=== PATIENT | female | born 1975 | race Caucasian/White ===

== ENCOUNTER 2019-02-26 18:59 | Emergency (ER) | payer BC ==
[2019-02-26 19:31] VITALS: BP 153/95; PULSE 100
--- NOTE | 2019-02-26 19:48 | EDM.PDOC ---
ED HPI GENERAL MEDICAL PROBLEM - General Chief Complaint: Laceration Stated Complaint: RIGHT PINKY CUT Time Seen by Provider: 02/26/19 19:43 Source of Information: Reports: Patient History Limitations: Reports: No Limitations - History of Present Illness INITIAL COMMENTS - FREE TEXT/NARRATIVE: cut right 5th last night. had to work today so unable to come till now because it won't stop bleeding. 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: Reports: Psychiatric History: Reports: Anxiety, Panic Attack - Past Surgical History GI Surgical History: Reports: Cholecystectomy Female Surgical History: Reports: Tubal Ligation Social & Family History - Family History Family Medical History: Noncontributory - Tobacco Use Smoking Status *Q: Current Every Day Smoker Years of Tobacco use: 25 Packs/Tins Daily: 1 Used Tobacco, but Quit: No Second Hand Smoke Exposure: Yes - Caffeine Use Caffeine Use: Reports: Coffee - Alcohol Use Days Per Week of Alcohol Use: 2 Number of Drinks Per Day: 5 Total Drinks Per Week: 10 Date of Last Drink: 02/25/19 - Recreational Drug Use Recreational Drug Use: No - Living Situation & Occupation Living situation: Reports: , with Family Occupation: Employed ED ROS GENERAL - Review of Systems Review Of Systems: Comprehensive ROS is negative, except as noted in HPI. ED EXAM, SKIN/RASH Exam: See Below Exam Limited By: No Limitations General Appearance: Alert, WD/WN, Mild Distress, Other (pain) Ears: Hearing Grossly Normal Throat/Mouth: Normal Voice, No Airway Compromise Head: Atraumatic Neck: Non-Tender, Full Range of Motion Respiratory/Chest: No Respiratory Distress Cardiovascular: Regular Rate, Rhythm GI/Abdominal: Soft, Non-Tender Extremities: Other (right 5th distal 3/4". NV wnl) Neurological: Alert, Oriented, Normal Cognition, Normal Gait, No Motor/Sensory Deficits Psychiatric: Flat Affect Skin: Warm, Dry, Normal Color Location, Skin: Upper Extremity, Right Lymphatic: No Adenopathy ED SKIN PROCEDURES - Laceration/Wound Repair Right Digit - 5th (Baby) Appearance: Subcutaneous, Linear, Clean Distal NVT: Neuro & Vascular Intact, No Tendon Injury Anesthetic Type: Local Local Anesthesia - Lidocaine (Xylocaine): 1% Plain Local Anesthetic Volume: 5cc Skin Prep: Chlorhexidine (Hibiciens) Saline Irrigation (cc's): 20 Exploration/Debridement/Repair: Wound Explored, In a Bloodless Field, No Foreign Material Found Closed with: Sutures Lac/Wound length In cm: 2 (right 5th distal) Suture Size: 4-0 Suture Type: Nylon, Interrupted Sterile Dressing Applied: Provider Tetanus Status Addressed: Yes Complications: No Course - Vital Signs Last Recorded V/S: Last Vital Signs Temp 36.4 C 02/26/19 19:25 Pulse 100 02/26/19 19:25 Resp 18 02/26/19 19:25 BP 153/95 H 02/26/19 19:25 Pulse Ox 97 02/26/19 19:25 - Orders/Labs/Meds Meds: Medications Discontinued Medications Generic Name Dose Route Start Last Admin Trade Name [place] PRN Reason Stop Dose Admin Clindamycin HCl 150 mg 02/26/19 19:44 02/26/19 19:50 Cleocin PO 02/26/19 19:45 150 mg ONETIME ONE Administration Lidocaine HCl 30 ml 02/26/19 19:43 02/26/19 19:50 Xylocaine-Mpf 1% INJECT 02/26/19 19:44 30 ml ONETIME ONE Administration Departure - Departure Time of Disposition: 20:48 Disposition: Home, Self-Care 01 Condition: Good Clinical Impression: Finger laceration Qualifiers: Encounter type: initial encounter Finger: little finger Damage to nail status: without damage Foreign body presence: without foreign body Laterality: right Qualified Code(s): S61.216A - Laceration without foreign body of right little finger without damage to nail, initial encounter - Discharge Information Instructions: Sutured Wound Care, [id number] Forms: ED Department Discharge Additional Instructions: 1) wound check if looks infected 2) suture removal 10 days 3) keep wound clean dry covered rx given; clindamycin 150mg qid x 40
[2019-02-26] MEDS: Lidocaine 1% 30 ML SDV INJECT ONE (19:50)
[2019-02-26] MEDS: Clindamycin HCl 150 MG Cap PO ONE (19:50)
== END 2019-02-26 20:57 | disposition home or self-care (01) ==
LOC: DL.ED 18:59
DX: S61.216A Laceration without foreign body of right little finger without damage to nail, initial encounter (principal); F17.210 Nicotine dependence, cigarettes, uncomplicated; I10 Essential (primary) hypertension; Z79.899 Other long term (current) drug therapy; W26.9XXA Contact with unspecified sharp object(s), initial encounter
CPT/HCPCS: 12001; 99282; A9270; J2001

== ENCOUNTER 2020-06-15 13:22 | Emergency (ER) | payer BC ==
--- NOTE | 2020-06-15 13:40 | EDM.PDOC ---
ED HPI GENERAL MEDICAL PROBLEM - General Chief Complaint: Cardiovascular Problem Stated Complaint: CHEST PAIN, HEAVY ARMS, PAIN IN JAW Time Seen by Provider: 06/15/20 13:28 Source of Information: Reports: Patient, Old Records, RN, RN Notes Reviewed History Limitations: Reports: No Limitations - History of Present Illness INITIAL COMMENTS - FREE TEXT/NARRATIVE: Patient presents to the ED via personal vehicle with complaints of chest pain. The patient reports this pain began two days ago and has progressively worsened in this time. She characterizes the pain as a "pressure" and states it radiates through her chest into her back. She states this pressure causes her to feel short of breath at times. Additionally, she attest to fatigue, headache, bilateral upper extremity weakness and abdominal discomfort. She denies fever, shaking chills, palpitations, nausea, vomiting, constipation, melena, or hematochezia. She denies a history of cardiac events but does note a history of HTN for which she takes Lisinopril 20mg daily. She attest to a one pack a day smoking history. She denies recreational drug use or habitual alcohol consumption. The patient states she has not had an active COVID infection and has not received the vaccination. 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 ED EXAM, GENERAL - Physical Exam Exam: See Below Exam Limited By: No Limitations General Appearance: Alert, No Apparent Distress Eye Exam: Bilateral Eye: EOMI, Normal Inspection, PERRL (3mm) Nose: Normal Inspection, Normal Mucosa, No Blood Throat/Mouth: Normal Inspection, Normal Lips, Normal Teeth, Normal Gums, Normal Oropharynx, Normal Voice, No Airway Compromise Head: Atraumatic, Normocephalic Neck: Normal Inspection, Supple, Non-Tender, Full Range of Motion Respiratory/Chest: No Respiratory Distress, No Accessory Muscle Use, Rales (To right lower lobr), Wheezing (Inspiratory and expiratory on the right upper and lower lobe). No: Crackles, Rhonchi Cardiovascular: Regular Rate, Rhythm, No Edema, No Gallop, No JVD, No Rub, Systolic Murmur (3/6, loudest over the pulmonic area; No radiation into the carotids) Peripheral Pulses: 2+: Radial (L), Radial (R) GI/Abdominal: Normal Bowel Sounds, Soft, Non-Tender, No Organomegaly, No Distention, No Abnormal Bruit, No Mass (Female) Exam: Deferred Rectal (Female) Exam: Deferred Back Exam: Normal Inspection, Full Range of Motion. No: CVA Tenderness (L), CVA Tenderness (R) Extremities: Normal Inspection, Normal Range of Motion, Non-Tender, Normal Capillary Refill, No Pedal Edema Neurological: Alert, Oriented, CN II-XII Intact, Normal Cognition, Normal Gait, No Motor/Sensory Deficits Psychiatric: Normal Affect, Normal Mood Skin Exam: Warm, Dry, Intact, Normal Color, No Rash. No: Ecchymosis, Erythema, Jaundice, Mottled, Pallor, Petechiae #1 Interpretation EKG Date: 06/15/20 Time: 13:37 Rhythm: NSR Rate (Beats/Min): 81 [place]: LAD-Left [place] Deviation P-Wave: Present QRS: Normal ST-T: Normal QT: Normal GA/PQ Interval: 0.172 Comparison: NA - No Prior EKG EKG Interpretation Comments: NSR; No evidence of acute myocardial ischemia Course - Vital Signs Last Recorded V/S: Last Vital Signs Temp 97.7 F 06/15/20 13:23 Pulse 88 06/15/20 13:23 Resp 16 06/15/20 13:23 BP 156/84 H 06/15/20 13:23 Pulse Ox 100 06/15/20 13:23 - Orders/Labs/Meds Orders: Active Orders 24 hr Category Date Time Status CULTURE URINE [RM] Stat Lab 06/15/20 14:02 Received Labs: Laboratory Tests 03/18/21 03/18/21 03/18/21 Range/Units 13:29 13:29 13:29 WBC 6.4 (5.0-10.0) 10^3/uL RBC 4.65 (4.2-5.4) 10^6/uL Hgb 12.2 (12.0-16.0) g/dL Hct 38.4 (37.0-47.0) % MCV 82.6 D (80-100) fL MCH 26.2 L (27.0-34.0) pg MCHC 31.8 L (33.0-35.0) g/dL Plt Count 215 (150-450) 10^3/uL Neut % (Auto) 62.6 (42.2-75.2) % Lymph % (Auto) 23.0 (20.5-50.1) % [place] % (Auto) 11.0 H (2-8) % Eos % (Auto) 2.8 (1.0-3.0) % Baso % (Auto) 0.6 (0.0-1.0) % Sodium 140 (136-145) mmol/L Potassium 4.4 (3.5-5.1) mmol/L Chloride 103 (98-107) mmol/L Carbon Dioxide 25 (21-32) mmol/L Anion Gap 16.4 H (7-13) mEq/L BUN 11 (7-18) mg/dL Creatinine 0.95 (0.55-1.02) mg/dL Est Cr Clr Drug Dosing 71.48 mL/min Estimated GFR (MDRD) > 60 BUN/Creatinine Ratio 11.6 (No establ ref range) Glucose 101 H (74-99) mg/dL Lactic Acid 1.2 (0.4-2.0) mmol/L Calcium 8.7 (8.5-10.1) mg/dL Total Bilirubin 0.3 (0.2-1.0) mg/dL AST 27 (15-37) U/L ALT 49 (14-59) U/L Alkaline Phosphatase 83 (46-116) U/L Troponin I 0.174 H* (0.000-0.056) ng/mL C-Reactive Protein < 0.2 (0.0-0.9) mg/dL B-Natriuretic Peptide 23 (0-100) pg/ml Total Protein 7.8 (6.4-8.2) g/dL Albumin 3.7 (3.4-5.0) g/dL Globulin 4.1 Albumin/Globulin Ratio 0.9 Amylase 43 (25-115) U/L Lipase 121 (73-393) U/L HCG, Qual Negative Urine Color (YELLOW) Urine Appearance (CLEAR) Urine pH (5.0-9.0) Ur Specific [place] (1.005-1.030) Urine Protein (NEGATIVE) Urine Glucose (UA) (NEGATIVE) Urine Ketones (NEGATIVE) Urine Occult Blood (NEGATIVE) Urine Nitrite (NEGATIVE) Urine Bilirubin (NEGATIVE) Urine Urobilinogen (0.2-1.0) mg/dL Ur Leukocyte Esterase (NEGATIVE) Urine RBC /HPF Urine WBC (0-5/HPF) /HPF Ur Epithelial Cells (NOT SEEN) /HPF Urine Bacteria (0-FEW/HPF) /HPF Urinalysis Comment Urine Opiates Screen (NEGATIVE) Ur Oxycodone Screen (NEGATIVE) Urine Methadone Screen (NEGATIVE) Ur Barbiturates Screen (NEGATIVE) U Tricyclic Antidepress (NEGATIVE) Ur Phencyclidine Scrn (NEGATIVE) Ur Amphetamine Screen (NEGATIVE) U Methamphetamines Scrn (NEGATIVE) Urine MDMA Screen (NEGATIVE) U Benzodiazepines Scrn (NEGATIVE) Urine Cocaine Screen (NEGATIVE) U Marijuana (THC) Screen (NEGATIVE) Ethyl Alcohol < 3 (0) mg/dL SARS CoV-2 RNA Rapid SAKINA (NEGATIVE) 06/15/20 06/15/20 06/15/20 Range/Units 14:02 14:02 14:09 WBC (5.0-10.0) 10^3/uL RBC (4.2-5.4) 10^6/uL Hgb (12.0-16.0) g/dL Hct (37.0-47.0) % MCV (80-100) fL MCH (27.0-34.0) pg MCHC (33.0-35.0) g/dL Plt Count (150-450) 10^3/uL Neut % (Auto) (42.2-75.2) % Lymph % (Auto) (20.5-50.1) % [place] % (Auto) (2-8) % Eos % (Auto) (1.0-3.0) % Baso % (Auto) (0.0-1.0) % Sodium (136-145) mmol/L Potassium (3.5-5.1) mmol/L Chloride (98-107) mmol/L Carbon Dioxide (21-32) mmol/L Anion Gap (7-13) mEq/L BUN (7-18) mg/dL Creatinine (0.55-1.02) mg/dL Est Cr Clr Drug Dosing mL/min Estimated GFR (MDRD) BUN/Creatinine Ratio (No establ ref range) Glucose (74-99) mg/dL Lactic Acid (0.4-2.0) mmol/L Calcium (8.5-10.1) mg/dL Total Bilirubin (0.2-1.0) mg/dL AST (15-37) U/L ALT (14-59) U/L Alkaline Phosphatase (46-116) U/L Troponin I (0.000-0.056) ng/mL C-Reactive Protein (0.0-0.9) mg/dL B-Natriuretic Peptide (0-100) pg/ml Total Protein (6.4-8.2) g/dL Albumin (3.4-5.0) g/dL Globulin Albumin/Globulin Ratio Amylase (25-115) U/L Lipase (73-393) U/L HCG, Qual Urine Color Yellow (YELLOW) Urine Appearance Clear (CLEAR) Urine pH 5.0 (5.0-9.0) Ur Specific [place] >= 1.030 (1.005-1.030) Urine Protein Negative (NEGATIVE) Urine Glucose (UA) Negative (NEGATIVE) Urine Ketones Negative (NEGATIVE) Urine Occult Blood Trace-lysed H (NEGATIVE) Urine Nitrite Negative (NEGATIVE) Urine Bilirubin Negative (NEGATIVE) Urine Urobilinogen 0.2 (0.2-1.0) mg/dL Ur Leukocyte Esterase Small H (NEGATIVE) Urine RBC 0-5 /HPF Urine WBC 0-5 (0-5/HPF) /HPF Ur Epithelial Cells Moderate H (NOT SEEN) /HPF Urine Bacteria Moderate H (0-FEW/HPF) /HPF Urinalysis Comment See note Urine Opiates Screen Negative (NEGATIVE) Ur Oxycodone Screen Negative (NEGATIVE) Urine Methadone Screen Negative (NEGATIVE) Ur Barbiturates Screen Negative (NEGATIVE) U Tricyclic Antidepress Negative (NEGATIVE) Ur Phencyclidine Scrn Negative (NEGATIVE) Ur Amphetamine Screen Negative (NEGATIVE) U Methamphetamines Scrn Negative (NEGATIVE) Urine MDMA Screen Negative (NEGATIVE) U Benzodiazepines Scrn Negative (NEGATIVE) Urine Cocaine Screen Negative (NEGATIVE) U Marijuana (THC) Screen Negative (NEGATIVE) Ethyl Alcohol (0) mg/dL SARS CoV-2 RNA Rapid [place]AK[place] Negative (NEGATIVE) Meds: Medications Discontinued Medications Generic Name Dose Route Start Last Admin Trade Name Freq PRN Reason Stop Dose Admin Aspirin 324 mg 06/15/20 14:03 06/15/20 14:16 Aspirin 81 Mg Tab.Chew PO 06/15/20 14:04 324 mg ONETIME ONE Administration Heparin Sodium (Porcine) 4,000 units 06/15/20 14:01 06/15/20 14:32 Heparin Sodium 5,000 Units/Ml Vial IVPUSH 06/15/20 14:02 4,000 units .BOLUS ONE Administration Heparin Sodium/Sodium Chloride 25,000 units in 500 mls @ 25.692 mls/hr 06/15/20 14:15 06/15/20 14:33 Heparin 25,000 Units In 1/2 Ns 500 Ml IV 12 units/kg/hr TITRATE HARRISON 25.692 mls/hr Administration Protocol 12 UNITS/KG/HR Morphine Sulfate 2 mg 06/15/20 14:13 06/15/20 14:21 Morphine 2 Mg/Ml Syringe IVPUSH 06/15/20 14:14 2 mg ONETIME ONE Administration - Re-Assessments/Exams Free Text/Narrative Re-Assessment/Exam: 06/15/20 EKG unremarkable for new myocardial ischemia; no evidence of ST elevation or depression. Troponin elevated at 0.174 Will treat as a NSTEMI as there is no additional cause for troponin elevation via examination, lab work, or imaging. COVID test negative. No evidence of infiltrates or pulmonary edema on CXR. Heparin 4000u bolus and 12u/kg/hr gtt initiated. Patient given ASA 325mg to chew. Patient updated on findings of examination, lab work, and imaging. Discussed need for transfer to higher care. Case discussed with Dr. Romero at [facility] in [place] who kindly agreed to accept patient for transfer. Departure - Departure Time of Disposition: 14:41 Disposition: DC/Tfer to Acute Hospital 02 Reason for Transfer *Q: Primary PCI Indicated Condition: Good Clinical Impression: NSTEMI (non-ST elevated myocardial infarction) Referrals: PCP,None [Primary Care Provider] - Forms: ED Department Discharge, Interfacility Transfer EMTALA - My Orders Last 24 Hours: My Active Orders 06/15/20 14:02 CULTURE URINE [RM] Stat - Assessment/Plan Last 24 Hours: My Active Orders 06/15/20 14:02 CULTURE URINE [RM] Stat
[2020-06-15 13:43] VITALS: BP 156/84; PULSE 88
[2020-06-15 13:57] LABS: ANION GAP 16.4 mEq/L (7-13); CHLORIDE,CL 103 mmol/L (98-107); SODIUM,NA 140 mmol/L (136-145)
[2020-06-15] MEDS ORDERED: Heparin Sodium 5,000 Units/ML Vial IVPUSH ONE (14:01)
[2020-06-15] MEDS ORDERED: Aspirin 81 MG Tab.Chew PO ONE (14:03)
[2020-06-15] MEDS ORDERED: Morphine 2 MG/ML SYRINGE IVPUSH ONE (14:13)
--- NOTE | 2020-06-15 14:14 | CR ---
EXAMINATION: Chest 1V Frontal SEX: Female AGE: 44 years CLINICAL HISTORY: 44-year-old female with Chest pain. INTERPRETATION: No acute new cardiopulmonary abnormality since comparison 09 October 2014. 1. Normal cardiac silhouette i.e. size and configuration. 2. No pulmonary vascular congestion, cephalization of flow, alveolar edema or dependent pleural fluid accumulation. 3. No new lung mass, hilar lymphadenopathy or focal lobar infiltrate/atelectasis. 4. No peripheral "groundglass" interstitial lung densities. 5. No pneumothorax or pneumomediastinum.
[2020-06-15] MEDS ORDERED: Heparin Sodium/0.45% NaCl 25,000 UNITS/500 ML BAG IV SCH (14:15)
== END 2020-06-15 14:50 ==
LOC: DL.ED 13:22
DX: I21.4 Non-ST elevation (NSTEMI) myocardial infarction (principal); I10 Essential (primary) hypertension; F17.210 Nicotine dependence, cigarettes, uncomplicated; Z79.899 Other long term (current) drug therapy; Z20.822 Contact with and (suspected) exposure to COVID-19
CPT/HCPCS: 36415; 71045; 80053; 80305; 80307; 81001; 82150; 83605; 83690; 83880; 84484; 84703; 85025; 86140; 87086; 87635; 93005; 96365; 96375; 99285; A9270; J1644; J2270; 93010; U0002

== ENCOUNTER 2020-07-17 12:22 | Emergency (ER) | payer BC ==
[2020-07-17] MEDS ORDERED: Aspirin 81 MG Tab.Chew PO ONE (12:34)
[2020-07-17] MEDS ORDERED: Nitroglycerin 0.4 MG Tab.SL SL ONE (12:44)
--- NOTE | 2020-07-17 12:49 | EDM.PDOC ---
ED HPI GENERAL MEDICAL PROBLEM - General Chief Complaint: Chest Pain Stated Complaint: CHEST PAIN Time Seen by Provider: 07/17/20 12:35 Source of Information: Reports: Patient History Limitations: Reports: No Limitations - History of Present Illness INITIAL COMMENTS - FREE TEXT/NARRATIVE: This 44 yo female patient reports to the ED with an acute onset of substernal chest pain. The patient reports she was at work when she started to feel increased heaviness in the center of her chest. The patient reports that it feels like something is sitting on her chest at this time. The patient states she was seen in for similar symptoms about 1 month ago and was sent to , but nothing was found during that visit. The patient reports she is scheduled for a stress test tomorrow. The patient has not taken anything at this time for temporary symptom relief. Onset: Today Onset Date: 07/17/20 Onset Time: 11:15 Duration: Constant Location: Reports: Chest Quality: Reports: Pressure Severity: Severe Improves with: Reports: None Worsens with: Reports: Immobilization Context: Reports: Other Associated Symptoms: Reports: Chest Pain, Nausea/Vomiting, Shortness of Breath - Related Data Allergies Allergy/AdvReac Type Severity Reaction Status Date / Time No Known Allergies Allergy Verified 06/15/20 13:43 Home Meds: Home Meds Lisinopril 30 mg PO DAILY 10/09/14 [History] Past Medical History HEENT History: Reports: Impaired Vision Cardiovascular History: Reports: Hypertension 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 ED EXAM, GENERAL - Physical Exam Exam: See Below Exam Limited By: No Limitations General Appearance: Alert, WD/WN, Moderate Distress Eye Exam: Bilateral Eye: EOMI, Normal Inspection, PERRL Ears: Normal External Exam, Normal Canal, Hearing Grossly Normal, Normal TMs Nose: Normal Inspection, Normal Mucosa, No Blood Throat/Mouth: Normal Inspection, Normal Lips, Normal Teeth, Normal Gums, Normal Oropharynx, Normal Voice, No Airway Compromise Head: Atraumatic, Normocephalic Neck: Normal Inspection, Supple, Non-Tender, Full Range of Motion Respiratory/Chest: No Respiratory Distress, Lungs Clear, Normal Breath Sounds, No Accessory Muscle Use, Chest Non-Tender Cardiovascular: Normal Peripheral Pulses, Regular Rate, Rhythm, No Edema, No Gallop, No JVD, No Murmur, No Rub GI/Abdominal: Normal Bowel Sounds, Soft, Non-Tender, No Organomegaly, No Distention, No Abnormal Bruit, No Mass (Female) Exam: Deferred Rectal (Female) Exam: Deferred Back Exam: Normal Inspection, Full Range of Motion, NT Extremities: Normal Inspection, Normal Range of Motion, Non-Tender, Normal Capillary Refill, No Pedal Edema Neurological: Alert, Oriented, CN II-XII Intact, Normal Cognition, Normal Gait, Normal Reflexes, No Motor/Sensory Deficits Psychiatric: Normal Affect, Normal Mood Skin Exam: Warm, Dry, Intact, Normal Color, No Rash Lymphatic: No Adenopathy #1 Interpretation EKG Date: 07/17/20 Time: 12:28 Rhythm: NSR Rate (Beats/Min): 69 [place]: Normal P-Wave: Present QRS: Normal ST-T: Normal QT: Normal Comparison: No Change #2 Interpretation EKG Date: 07/17/20 Time: 16:50 Rhythm: NSR Rate (Beats/Min): 67 [place]: Normal P-Wave: Present QRS: Normal ST-T: Normal QT: Normal Comparison: No Change Course - Vital Signs Last Recorded V/S: Last Vital Signs Temp 35.8 C L 07/17/20 12:43 Pulse 66 07/17/20 12:43 Resp 20 07/17/20 12:43 BP 141/80 H 07/17/20 12:53 Pulse Ox 100 07/17/20 12:43 - Orders/Labs/Meds Orders: Active Orders 24 hr Category Date Time Status EKG Documentation Completion [RC] STAT Care 07/17/20 12:23 Active EKG Documentation Completion [RC] URGENT Care 07/17/20 16:30 Active CULTURE BLOOD [BC] Stat Lab 07/17/20 12:36 Received Heparin Sodium/0.45% NaCl [Heparin 25,000 Units in 1/2 Med 07/17/20 17:12 Ordered NS 500 ML] 25,000 units in 500 ml IV ONETIME Medication Orders Heparin Sodium/Sodium Chloride (Heparin 25,000 Units In 1/2 Ns 500 Ml) 25,000 units in 500 mls @ 0 mls/hr IV ONETIME ONE Stop: 07/17/20 17:13 Labs: Laboratory Tests 07/17/20 07/17/20 07/17/20 Range/Units 12:36 12:36 12:36 WBC 5.2 (5.0-10.0) 10^3/uL RBC 4.25 (4.2-5.4) 10^6/uL Hgb 11.1 L (12.0-16.0) g/dL Hct 35.4 L (37.0-47.0) % MCV 83.3 (80-100) fL MCH 26.1 L (27.0-34.0) pg MCHC 31.4 L (33.0-35.0) g/dL Plt Count 196 (150-450) 10^3/uL Neut % (Auto) 64.5 (42.2-75.2) % Lymph % (Auto) 22.5 (20.5-50.1) % [place] % (Auto) 9.3 H (2-8) % Eos % (Auto) 2.9 (1.0-3.0) % Baso % (Auto) 0.8 (0.0-1.0) % PT 11.0 (9.0-12.0) SEC INR 1.1 (0.9-1.2) D-Dimer, Quantitative < 100 (0-400) ng/mL Sodium 140 (136-145) mmol/L Potassium 3.6 (3.5-5.1) mmol/L Chloride 105 (98-107) mmol/L Carbon Dioxide 25 (21-32) mmol/L Anion Gap 13.6 H (7-13) mEq/L BUN 9 (7-18) mg/dL Creatinine 0.96 (0.55-1.02) mg/dL Est Cr Clr Drug Dosing TNP Estimated GFR (MDRD) > 60 BUN/Creatinine Ratio 9.4 (No establ ref range) Glucose 110 H (70-99) mg/dL Lactic Acid (0.4-2.0) mmol/L Calcium 8.0 L (8.5-10.1) mg/dL Total Bilirubin 0.2 (0.2-1.0) mg/dL AST 19 (15-37) U/L ALT 44 (14-59) U/L Alkaline Phosphatase 85 (46-116) U/L Troponin I 0.021 (0.000-0.056) ng/mL B-Natriuretic Peptide 30 (0-100) pg/ml Total Protein 6.9 (6.4-8.2) g/dL Albumin 3.4 (3.4-5.0) g/dL Globulin 3.5 Albumin/Globulin Ratio 1.0 Influenza Type A RNA (NEGATIVE) Influenza Type B RNA (NEGATIVE) SARS-CoV-2 RNA (SA[place]) (NEGATIVE) 07/17/20 07/17/20 07/17/20 Range/Units 12:36 13:26 16:32 WBC (5.0-10.0) 10^3/uL RBC (4.2-5.4) 10^6/uL Hgb (12.0-16.0) g/dL Hct (37.0-47.0) % MCV (80-100) fL MCH (27.0-34.0) pg MCHC (33.0-35.0) g/dL Plt Count (150-450) 10^3/uL Neut % (Auto) (42.2-75.2) % Lymph % (Auto) (20.5-50.1) % [place] % (Auto) (2-8) % Eos % (Auto) (1.0-3.0) % Baso % (Auto) (0.0-1.0) % PT (9.0-12.0) SEC INR (0.9-1.2) D-Dimer, Quantitative (0-400) ng/mL Sodium (136-145) mmol/L Potassium (3.5-5.1) mmol/L Chloride (98-107) mmol/L Carbon Dioxide (21-32) mmol/L Anion Gap (7-13) mEq/L BUN (7-18) mg/dL Creatinine (0.55-1.02) mg/dL Est Cr Clr Drug Dosing Estimated GFR (MDRD) BUN/Creatinine Ratio (No establ ref range) Glucose (70-99) mg/dL Lactic Acid 2.0 (0.4-2.0) mmol/L Calcium (8.5-10.1) mg/dL Total Bilirubin (0.2-1.0) mg/dL AST (15-37) U/L ALT (14-59) U/L Alkaline Phosphatase (46-116) U/L Troponin I 1.014 H* (0.000-0.056) ng/mL B-Natriuretic Peptide (0-100) pg/ml Total Protein (6.4-8.2) g/dL Albumin (3.4-5.0) g/dL Globulin Albumin/Globulin Ratio Influenza Type A RNA Negative (NEGATIVE) Influenza Type B RNA Negative (NEGATIVE) SARS-CoV-2 RNA ([place]) Negative (NEGATIVE) Meds: Medications Generic Name Dose Route Start Last Admin Trade Name Freq PRN Reason Stop Dose Admin Heparin Sodium/Sodium Chloride 25,000 units in 500 mls @ 0 mls/hr 07/17/20 17:12 Heparin 25,000 Units In 1/2 Ns 500 Ml IV 07/17/20 17:13 ONETIME ONE 12 UNITS/KG/HR Discontinued Medications Generic Name Dose Route Start Last Admin Trade Name Freq PRN Reason Stop Dose Admin Aspirin 324 mg 07/17/20 12:34 07/17/20 12:40 Aspirin 81 Mg Tab.Chew PO 07/17/20 12:35 324 mg ONETIME ONE Administration Heparin Sodium (Porcine) 4,000 units 07/17/20 17:11 Heparin Sodium 5,000 Units/Ml Vial IVPUSH 07/17/20 17:12 .BOLUS ONE Nitroglycerin 0.4 mg 07/17/20 12:44 07/17/20 12:53 Nitroglycerin 0.4 Mg Tab.Sl SL 07/17/20 12:45 0.4 mg ONETIME ONE Administration - Re-Assessments/Exams Free Text/Narrative Re-Assessment/Exam: 07/17/20 13:34 The patient reports her chest pain is gone at this time (the patient reports her pain went away after the Nitro). Departure - Departure Time of Disposition: 17:18 Disposition: DC/Tfer to [facility] Reason for Transfer *Q: Other Condition: Serious Clinical Impression: NSTEMI (non-ST elevated myocardial infarction), Elevated troponin Forms: Interfacility Transfer EMTALA Care Plan Goals: Discussed the patient's history, examination, lab, initial EKG, repeat EKG and repeat lab results with Dr. Street. Dr. Street accepted the patient for continued evaluation and treatment as an inpatient at [facility] in [place]. Sepsis Event Note (ED) - Focused Exam Vital Signs: Vital Signs Temp Pulse Resp BP BP Pulse Ox 07/17/20 12:53 141/80 H 07/17/20 12:43 35.8 C L 66 20 142/81 H 100 - My Orders Last 24 Hours: My Active Orders 07/17/20 12:23 EKG Documentation Completion [RC] STAT 07/17/20 12:36 CULTURE BLOOD [BC] Stat 07/17/20 16:30 EKG Documentation Completion [RC] URGENT 07/17/20 17:12 Heparin Sodium/0.45% NaCl [Heparin 25,000 Units in 1/2 NS 500 ML] 25,000 units in 500 ml IV ONETIME - Assessment/Plan Last 24 Hours: My Active Orders 07/17/20 12:23 EKG Documentation Completion [RC] STAT 07/17/20 12:36 CULTURE BLOOD [BC] Stat 07/17/20 16:30 EKG Documentation Completion [RC] URGENT 07/17/20 17:12 Heparin Sodium/0.45% NaCl [Heparin 25,000 Units in 1/2 NS 500 ML] 25,000 units in 500 ml IV ONETIME
[2020-07-17 12:50] VITALS: PULSE 66
[2020-07-17 12:54] VITALS: BP 141/80
[2020-07-17 13:16] LABS: ANION GAP 13.6 mEq/L (7-13); CHLORIDE,CL 105 mmol/L (98-107); SODIUM,NA 140 mmol/L (136-145)
--- NOTE | 2020-07-17 13:37 | CR ---
EXAMINATION: Chest 1V Frontal SEX: Female AGE: 44 years CLINICAL HISTORY: 44-year-old female chest pain. Comparison exam 15 June 2020. Interpretation: No acute new cardiopulmonary abnormality. Negative exam. Normal cardiac silhouette (size and configuration). security monitor leads. No pulmonary vascular congestion, cephalization of flow, alveolar edema or dependent pleural effusion. No rib fracture, lung contusion, atelectasis, or pneumothorax. No new lung mass, hilar lymphadenopathy or focal lobar consolidation (infiltrate/atelectasis). No peripheral "groundglass" interstitial lung densities.
[2020-07-17 14:12] LABS: CORONAVIRUS COVID-19 NAA NEGATIVE (NEGATIVE)
[2020-07-17] MEDS ORDERED: Heparin Sodium 5,000 Units/ML Vial IVPUSH ONE (17:11)
[2020-07-17] MEDS ORDERED: Heparin Sodium/0.45% NaCl 25,000 UNITS/500 ML BAG IV ONE (17:12)
[2020-07-17] MEDS ORDERED: Heparin Sodium/0.45% NaCl 25,000 UNITS/500 ML BAG IV SCH (18:00)
== END 2020-07-17 19:07 ==
LOC: DL.ED 12:22
DX: I21.4 Non-ST elevation (NSTEMI) myocardial infarction (principal); R79.89 Other specified abnormal findings of blood chemistry; I10 Essential (primary) hypertension; Z79.899 Other long term (current) drug therapy; Z20.822 Contact with and (suspected) exposure to COVID-19
CPT/HCPCS: 0240U; 36415; 71045; 80053; 83605; 83880; 84484; 85025; 85379; 85610; 87040; 93005; 93010; 96365; 99285; 99285-25; A9270-GY; J1644

== ENCOUNTER 2021-09-21 22:00 | Emergency (ER) | payer BC ==
[2021-09-21 23:19] LABS: ANION GAP 11.3 mEq/L (7-13)
[2021-09-22 02:13] VITALS: BP 101/68; PULSE 62
== END 2021-09-22 01:02 | disposition home or self-care (01) ==
LOC: DL.ED 22:00
DX: E86.0 Dehydration (principal); D64.9 Anemia, unspecified; I10 Essential (primary) hypertension; E78.00 Pure hypercholesterolemia, unspecified; I25.2 Old myocardial infarction; F41.9 Anxiety disorder, unspecified; Z20.822 Contact with and (suspected) exposure to COVID-19; Z79.899 Other long term (current) drug therapy; Z87.891 Personal history of nicotine dependence; Z91.048 Other nonmedicinal substance allergy status
CPT/HCPCS: 36415; 71045; 80053; 83690; 83735; 84484; 85025; 93010; 99284; 99285-25; U0002

== ENCOUNTER 2022-03-05 12:25 | Emergency (ER) | payer BC ==
[2022-03-05] MEDS ORDERED: Ferric Subsulfate Topical Soln 8 GM (8 ML) Bottle TOP ONE ×2 (12:30→12:55)
[2022-03-05] MEDS ORDERED: Ferric Subsulfate Topical Soln 8 GM (8 ML) Bottle ONE (12:34)
[2022-03-05 14:13] VITALS: BP 138/91; PULSE 99
== END 2022-03-05 14:12 | disposition home or self-care (01) ==
LOC: DL.ED 12:25
DX: N99.820 Postprocedural hemorrhage of a genitourinary system organ or structure following a genitourinary system procedure (principal); E78.00 Pure hypercholesterolemia, unspecified; I10 Essential (primary) hypertension; I25.2 Old myocardial infarction; F17.210 Nicotine dependence, cigarettes, uncomplicated; E66.9 Obesity, unspecified; Z68.41 Body mass index [BMI] 40.0-44.9, adult; Z91.048 Other nonmedicinal substance allergy status; Z79.899 Other long term (current) drug therapy; Z79.82 Long term (current) use of aspirin; Z90.49 Acquired absence of other specified parts of digestive tract
CPT/HCPCS: 36415; 85025; 99284

== ENCOUNTER 2022-04-15 13:51 | Emergency (ER) | payer BC ==
[2022-04-15] MEDS ORDERED: Sodium Chloride 0.9% 10 ML Syringe FLUSH PRN (13:59)
[2022-04-15 14:44] VITALS: BP 157/97; PULSE 98
[2022-04-15 15:04] LABS: ANION GAP 13.8 mEq/L (7-13); CHLORIDE,CL 103 mmol/L (98-107); SODIUM,NA 140 mmol/L (136-145)
[2022-04-15 15:05] LABS: ESTIMATED GFR 73 mL/min (>=60)
[2022-04-15 15:39] LABS: CORONAVIRUS COVID-19 NAA NEGATIVE (NEGATIVE); RESPIRATORY SYNCYTIAL VIR NAA NEGATIVE (NEGATIVE)
== END 2022-04-15 15:57 | disposition home or self-care (01) ==
LOC: DL.ED 13:51
DX: R10.13 Epigastric pain (principal); E78.00 Pure hypercholesterolemia, unspecified; I10 Essential (primary) hypertension; I25.2 Old myocardial infarction; E66.9 Obesity, unspecified; Z91.048 Other nonmedicinal substance allergy status; Z79.82 Long term (current) use of aspirin; Z79.02 Long term (current) use of antithrombotics/antiplatelets; Z79.899 Other long term (current) drug therapy; Z86.16 Personal history of COVID-19
CPT/HCPCS: 0241U; 36415; 80053; 80307; 82150; 82947; 83605; 83690; 83735; 84443; 84484; 85025; 86140; 93005; 99284

== ENCOUNTER 2022-08-20 06:03 | Day surgery (SDC) | payer BC ==
[~2022-08-20 06:03] MED LIST: Dextrose 5%-0.45% NaCl 1,000 ML IV SCH; Sodium Chloride 0.9% 10 ML Syringe FLUSH PRN; Sodium Chloride 0.9% 10 ML Syringe FLUSH SCH
[2022-08-20] MEDS ORDERED: Midazolam 1 MG/ML 2 ML SDV IV ONE ×4 (06:04→06:46)
[2022-08-20] MEDS ORDERED: fentaNYL 100 MCG/2 ML SDV IV ONE ×3 (06:04→06:39)
[2022-08-20] MEDS ORDERED: fentaNYL 100 MCG/2 ML SDV ONE (06:20)
[2022-08-20] MEDS ORDERED: Midazolam 1 MG/ML 2 ML SDV ONE ×2 (06:20→06:42)
[2022-08-20 08:21] VITALS: BP 125/58; PULSE 58
== END 2022-08-20 08:15 | disposition home or self-care (01) ==
LOC: DL.ENDO 06:03
PROVIDERS: ATTEND Internal Medicine Gastroenterology
DX: R10.9 Unspecified abdominal pain (principal); I25.10 Atherosclerotic heart disease of native coronary artery without angina pectoris; E66.09 Other obesity due to excess calories; I10 Essential (primary) hypertension; E78.00 Pure hypercholesterolemia, unspecified; E55.9 Vitamin D deficiency, unspecified; F41.1 Generalized anxiety disorder; Z90.49 Acquired absence of other specified parts of digestive tract; Z98.51 Tubal ligation status; Z95.5 Presence of coronary angioplasty implant and graft
CPT/HCPCS: 43235; 81025; J2250; J3010; J7042

== ENCOUNTER 2023-05-15 21:11 | Emergency (ER) | payer BC ==
[2023-05-15 21:27] VITALS: BP 134/98; PULSE 76
[2023-05-15] MEDS: Sodium Chloride 0.9% 10 ML Syringe FLUSH PRN (21:31)
[2023-05-15 21:33] LABS: BASOPHILS PERCENT AUTO 0.9 % (0.0-1.0); EOSINOPHILS PERCENT AUTO 3.6 % (1.0-3.0); HEMATOCRIT 34.2 % (37.0-47.0); HEMOGLOBIN 10.4 g/dL (12.0-16.0); LYMPHOCYTES PERCENT AUTO 28.7 % (20.5-50.1); MEAN CORPUSCULAR HGB CONC 30.4 g/dL (33.0-35.0); MEAN CORPUSCULAR VOLUME 75.5 fL (80-100); MONOCYTES PERCENT AUTO 9.2 % (2-8); NEUTROPHILS PERCENT AUTO 57.6 % (42.2-75.2); PLATELET COUNT,PLT 204 10^3/uL (150-450); RED BLOOD CELL COUNT 4.53 10^6/uL (4.2-5.4); WHITE BLOOD CELL COUNT,WBC 5.9 10^3/uL (5.0-10.0)
[2023-05-15 21:49] LABS: HCG QUALITATIVE,SERUM NEGATIVE (NEGATIVE)
[2023-05-15 21:51] LABS: ALANINE AMINOTRANSFERASE,ALT 43 U/L (14-59); ALBUMIN 3.8 g/dL (3.4-5.0); ALKALINE PHOSPHATASE 78 U/L (46-116); ANION GAP 12.3 mEq/L (7-13); ASPARTATE AMNIOTRANSFERASE,AST 16 U/L (15-37); BILIRUBIN TOTAL 0.4 mg/dL (0.2-1.0); BLOOD UREA NITROGEN,BUN 14 mg/dL (7-18); BUN/CREATININE RATIO 14.7 (No establ ref range); CALCIUM 8.8 mg/dL (8.5-10.1); CARBON DIOXIDE,CO2 27 mmol/L (21-32); CHLORIDE,CL 99 mmol/L (98-107); CREATININE 0.95 mg/dL (0.55-1.02); EST CRCL DRUG DOSING (CG) 66.58 mL/min; GLUCOSE RANDOM 111 mg/dL (70-99); POTASSIUM,K 4.3 mmol/L (3.5-5.1); PROTEIN TOTAL,TP 7.7 g/dL (6.4-8.2); SODIUM,NA 134 mmol/L (136-145)
[2023-05-15 21:52] LABS: ESTIMATED GFR 75 mL/min (>=60)
== END 2023-05-16 01:18 | disposition home or self-care (01) ==
LOC: DL.ED 21:11
DX: R07.89 Other chest pain (principal); I10 Essential (primary) hypertension; E78.00 Pure hypercholesterolemia, unspecified; I25.10 Atherosclerotic heart disease of native coronary artery without angina pectoris; I25.2 Old myocardial infarction; K21.9 Gastro-esophageal reflux disease without esophagitis; Z95.5 Presence of coronary angioplasty implant and graft; Z79.899 Other long term (current) drug therapy; Z79.82 Long term (current) use of aspirin; Z91.048 Other nonmedicinal substance allergy status
CPT/HCPCS: 36415; 80053; 84484; 84703; 85025; 93005; 93010; 99284; 99285; J3490